=== PATIENT | female | born 2000 | race Hispanic/Latino ===

== ENCOUNTER 2022-08-20 00:24 | Observation (INO) | payer OTHER ==
[2022-08-20 01:02] VITALS: BMI 22.3
[2022-08-20] MEDS ORDERED: Ondansetron ODT 4 MG TAB PO PRN (01:18)
[2022-08-20] MEDS ORDERED: hydrALAZINE 20 MG/ML VIAL SLOW IVP PRN (01:18)
[2022-08-20] MEDS ORDERED: Calcium Carbonate 500 MG ChewTAB PO PRN (01:18)
[2022-08-20] MEDS ORDERED: HYDROcodone/Acetaminophen 5/325 mg Tablet PO PRN ×2 (01:18)
[2022-08-20] MEDS ORDERED: Morphine 4 MG/ML VIAL SLOW IVP PRN (01:21)
[2022-08-20] MEDS ORDERED: Lactated Ringer's 1,000 ML IV SCH (01:30)
[2022-08-20 05:45] LABS: #Monocytes 0.5 10x3/uL (0.0-1.1); %Basophils 0.3 % (0.0-2.0); %Eosinophils 0.3 % (0.0-6.0); %Lymphocytes 15.5 % (18.0-47.0); %Monocytes 7.4 % (0.0-10.0); %Neutrophils 76.3 % (40.0-75.0); Hemoglobin 8.5 g/dL (12.0-15.5); Mean Corpuscular HGB CONC 32.4 g/dL (32.0-36.0); Mean Corpuscular Hemoglobin 30.6 pg (27.0-33.0); Mean Corpuscular Volume 94.2 fl (81.6-98.3); Mean Platelet Volume 10.2 fl (7.4-10.4); Platelet Count 145 10x3/uL (150-450); RBC Distribution Width 12.5 % (11.5-14.5); Red Blood Cell (RBC) Count 2.78 10x6/uL (3.90-5.03); White Blood Cell (WBC) Count 6.6 10x3/uL (3.5-10.5)
[2022-08-20 05:54] LABS: Anion Gap 11 mmol/L (10-20); BUN (Urea Nitrogen) 7 mg/dL (7.0-18.7); Calc. Creatinine Clearance 124 mL/min (70-130); Calcium 7.9 mg/dL (7.8-10.44); Carbon Dioxide 20 mmol/L (22-29); Chloride 109 mmol/L (98-107); Estimated GFR 128; Glucose 100 mg/dL (70-105); Potassium 3.8 mmol/L (3.5-5.1); Sodium 136 mmol/L (136-145)
[2022-08-20 08:19] VITALS: BP 110/65; TEMP 98.6
[2022-08-20] MEDS ORDERED: cefTRIAXone\\ROCEPHIN 2 GM in Sodium Chloride 0.9% 100 ML IVPB SCH (21:00)
== END 2022-08-20 17:57 | disposition home or self-care (01) ==
LOC: INTOOBSV 00:24 → CSHLD 00:24 → CSHPP 02:30
PROVIDERS: ADMIT Obstetrics & Gynecology; ATTEND Obstetrics & Gynecology
DX: O23.42 Unspecified infection of urinary tract in pregnancy, second trimester (principal); N39.0 Urinary tract infection, site not specified; Z3A.26 26 weeks gestation of pregnancy; O26.832 Pregnancy related renal disease, second trimester; N13.2 Hydronephrosis with renal and ureteral calculous obstruction
CPT/HCPCS: 36415; 76775; 76815; 80048; 80053; 81001; 83690; 85025; 87086; 94760; 96360; 96361; 96365; 96375; G0378; J0696; J2272; J2405; J7120; Q0162

== ENCOUNTER 2022-09-06 10:27 | Day surgery (SDC) | payer OTHER ==
[2022-09-06 10:47] VITALS: BMI 22.3
[2022-09-06] MEDS ORDERED: hydrALAZINE 20 MG/ML VIAL SLOW IVP PRN (11:29)
[2022-09-06] MEDS ORDERED: Acetaminophen 325 MG TAB PO SCH (11:30)
[2022-09-06] MEDS ORDERED: Ondansetron PF 4 MG/2 ML Vial IVP SCH (11:30)
[2022-09-06] MEDS ORDERED: Lactated Ringer's 1,000 ML IV SCH (11:30)
[2022-09-06 12:05] LABS: #Monocytes 0.4 10x3/uL (0.0-1.1); #Neutrophils 6.1 10x3/uL (1.5-8.4); %Basophils 0.5 % (0.0-2.0); %Eosinophils 0.5 % (0.0-6.0); %Lymphocytes 18.1 % (18.0-47.0); %Monocytes 5.2 % (0.0-10.0); Hemoglobin 10.4 g/dL (12.0-15.5); Mean Corpuscular HGB CONC 32.9 g/dL (32.0-36.0); Mean Corpuscular Hemoglobin 30.8 pg (27.0-33.0); Mean Corpuscular Volume 93.5 fl (81.6-98.3); Mean Platelet Volume 9.9 fl (7.4-10.4); Platelet Count 174 10x3/uL (150-450); RBC Distribution Width 12.6 % (11.5-14.5); Red Blood Cell (RBC) Count 3.38 10x6/uL (3.90-5.03); White Blood Cell (WBC) Count 8.1 10x3/uL (3.5-10.5)
[2022-09-06 12:07] LABS: Bilirubin Neg (Negative); Blood, Urine 150 (Negative); Clarity Cloudy (Clear); Glucose, Urine (Dipstick) Normal (Negative); Ketone, Urine Negative (Negative); Leukocyte 500 (Negative); Nitrite Negative (Negative); Protein, Urine (Dipstick) 30 mg/dl (Neg-Trace); Urobilinogen Normal mg/dL (Less than 2)
[2022-09-06 12:16] LABS: CAUTI Indications for Culture Pregnancy; WBC/HPF 21-50 HPF (0-3)
[2022-09-06 12:17] LABS: Bacteria/HPF 3+ HPF (None Seen)
[2022-09-06 12:18] LABS: Urine Culture Reflex Yes Yes
[2022-09-06] MEDS ORDERED: cefTRIAXone\\ROCEPHIN 1 GM in Sodium Chloride 0.9% 100 ML IVPB SCH (12:30)
[2022-09-06 12:34] LABS: ALT (SGPT) 14 U/L (8-55); AST (SGOT) 16 U/L (5-34); Albumin 3.7 g/dL (3.5-5.0); Alkaline Phosphatase 72 U/L (40-110); Anion Gap 12 mmol/L (10-20); BUN (Urea Nitrogen) 9 mg/dL (7.0-18.7); Bilirubin, Total 0.5 mg/dL (0.2-1.2); Calc. Creatinine Clearance 118 mL/min (70-130); Calcium 9.1 mg/dL (7.8-10.44); Carbon Dioxide 24 mmol/L (22-29); Chloride 106 mmol/L (98-107); Estimated GFR 127; Globulin 3.1 g/dL (2.4-3.5); Glucose 82 mg/dL (70-105); Potassium 4.4 mmol/L (3.5-5.1); Protein, Total 6.8 g/dL (6.0-8.3); Sodium 138 mmol/L (136-145)
== END 2022-09-06 13:58 | disposition home or self-care (01) ==
LOC: CSHLD/OP 10:27
PROVIDERS: ATTEND Obstetrics & Gynecology
DX: O99.891 Other specified diseases and conditions complicating pregnancy (principal); M54.50 Low back pain, unspecified; O47.03 False labor before 37 completed weeks of gestation, third trimester; O36.8130 Decreased fetal movements, third trimester, not applicable or unspecified; O23.43 Unspecified infection of urinary tract in pregnancy, third trimester; N39.0 Urinary tract infection, site not specified; Z87.442 Personal history of urinary calculi; Z3A.28 28 weeks gestation of pregnancy; Z79.899 Other long term (current) drug therapy
CPT/HCPCS: 36415; 80053; 81001; 85025; 87077; 87086; 87186; 96360; 96375; 99283; J0696; J2405; J3490

== ENCOUNTER 2022-10-17 10:38 | Day surgery (SDC) | payer OTHER ==
[2022-10-17 11:02] VITALS: BMI 23.9
[2022-10-17] MEDS ORDERED: hydrALAZINE 20 MG/ML VIAL SLOW IVP PRN (11:28)
[2022-10-17 13:36] LABS: Bilirubin Neg (Negative); Blood, Urine Negative (Negative); Clarity Slightly Cloudy (Clear); Glucose, Urine (Dipstick) Normal (Negative); Ketone, Urine Negative (Negative); Leukocyte 100 (Negative); Nitrite Negative (Negative); Protein, Urine (Dipstick) Negative (Neg-Trace); Urobilinogen Normal mg/dL (Less than 2)
[2022-10-17 14:33] LABS: RBC/HPF 0-3 HPF (0-3)
[2022-10-17 14:34] LABS: Bacteria/HPF 2+ HPF (None Seen); CAUTI Indications for Culture Pregnancy
[2022-10-17 14:36] LABS: Urine Culture Reflex Yes Yes
== END 2022-10-17 15:10 | disposition home or self-care (01) ==
LOC: CSHLD/OP 10:38
PROVIDERS: ATTEND Family Medicine
DX: O36.8130 Decreased fetal movements, third trimester, not applicable or unspecified (principal); O23.43 Unspecified infection of urinary tract in pregnancy, third trimester; N39.0 Urinary tract infection, site not specified; Z3A.34 34 weeks gestation of pregnancy
CPT/HCPCS: 76819; 81001; 87086; 99283

== ENCOUNTER 2022-11-06 20:29 | Day surgery (SDC) | payer OTHER ==
[2022-11-06] MEDS ORDERED: hydrALAZINE 20 MG/ML VIAL SLOW IVP PRN (22:13)
== END 2022-11-06 22:26 | disposition home or self-care (01) ==
LOC: CSHLD/OP 20:29
PROVIDERS: ATTEND Obstetrics & Gynecology
DX: O47.1 False labor at or after 37 completed weeks of gestation (principal); O99.353 Diseases of the nervous system complicating pregnancy, third trimester; G43.909 Migraine, unspecified, not intractable, without status migrainosus; O34.43 Maternal care for other abnormalities of cervix, third trimester; N87.9 Dysplasia of cervix uteri, unspecified; Z79.899 Other long term (current) drug therapy; Z3A.37 37 weeks gestation of pregnancy
CPT/HCPCS: 99282

== ENCOUNTER 2024-10-28 10:30 | Inpatient (IN) | payer OTHER ==
[2024-10-28 23:02] VITALS: BMI 26.9
[2024-10-29 01:26] LABS: Fetal Membranes Rupture No Membranes Rupture (No Rupture)
[2024-10-29] MEDS ORDERED: Diphenoxylate HCl/Atropine Tablet PO PRN ×2 (02:58)
[2024-10-29] MEDS ORDERED: hydrALAZINE 20 MG/ML VIAL SLOW IVP PRN ×2 (02:58→09:38)
[2024-10-29] MEDS ORDERED: Methylergonovine 0.2 MG/ML VIAL IM PRN ×2 (02:58→09:38)
[2024-10-29] MEDS ORDERED: Ondansetron PF 4 MG/2 ML Vial IVP PRN ×4 (02:58→09:38)
[2024-10-29] MEDS ORDERED: Famotidine/PF 20 mg/2ml Vial SLOW IVP PRN (02:58)
[2024-10-29] MEDS ORDERED: Bicitra 30 ML UDCUP PO PRN (02:58)
[2024-10-29] MEDS ORDERED: Tranexamic Acid 1,000 MG/10 ML VIAL IVP PRN (02:58)
[2024-10-29] MEDS ORDERED: Oxytocin 30 units/NS 500 ML 500 ML IV SCH ×2 (03:00→09:38)
[2024-10-29 03:50] LABS: Hematocrit 30.7 % (34.9-44.5); Hemoglobin 9.8 g/dL (12.0-15.5); Mean Corpuscular Hemoglobin 26.4 pg (27.0-33.0); Mean Corpuscular Volume 82.7 fL (81.6-98.3); Platelet Count 190 10x3/uL (150-450); Red Blood Cell (RBC) Count 3.71 10x6/uL (3.90-5.03); White Blood Cell (WBC) Count 6.34 10x3/uL (3.5-10.5)
[2024-10-29 04:07] LABS: ALT (SGPT) 12 U/L (Less than 34); AST (SGOT) 22 U/L (11-34); Albumin 3.1 g/dL (3.1-4.5); Alkaline Phosphatase 103 U/L (40-110); Anion Gap 15 mmol/L (10-20); BUN (Urea Nitrogen) 15 mg/dL (7.0-18.7); Bilirubin, Total 0.4 mg/dL (0.3-1.2); Calc. Creatinine Clearance 144 mL/min (70-130); Calcium 8.7 mg/dL (7.8-10.44); Carbon Dioxide 20 mmol/L (22-29); Chloride 105 mmol/L (98-107); Globulin 3.2 g/dL (2.4-3.5); Glucose 76 mg/dL (70-105); Potassium 4.3 mmol/L (3.5-5.1); Sodium 136 mmol/L (136-145)
[2024-10-29 04:26] LABS: Syphilis Antibody Index 0.02 S/CO (<1.00 Non-Reactive)
[2024-10-29 04:28] LABS: Hep B Surf Ag - L&D Non-Reactive S/CO (NonReactive)
[2024-10-29] MEDS ORDERED: diphenhydrAMINE 50 MG/ML VIAL IVP PRN (06:43)
[2024-10-29] MEDS ORDERED: Meperidine HCl/PF 25 MG (1 mL) VIAL SLOW IVP PRN (06:43)
[2024-10-29] MEDS ORDERED: HYDROmorphone 0.5 MG/0.5 ML SYRINGE SLOW IVP PRN (06:43)
[2024-10-29] MEDS ORDERED: Communication Order-Pharmacy FS SCH (06:45)
[2024-10-29] MEDS ORDERED: Ketorolac Tromethamine 30 MG (1 mL) VIAL IVP SCH (06:45)
[2024-10-29] MEDS ORDERED: Boostrix 0.5 ML (Tdap) VIAL (>/=7 yrs of age) IM ONE (10:00)
[2024-10-29] MEDS: Ketorolac Tromethamine 30 MG (1 mL) VIAL IVP PRN (11:12)
[2024-10-29] MEDS: Azithromycin 500 MG in Sodium Chloride 0.9% 250 ML 250 ML IVPB SCH (19:54)
[2024-10-29] MEDS: diphenhydrAMINE 50 MG/ML VIAL ONE (19:55)
[2024-10-29] MEDS: Dexamethasone 10 MG/ML VIAL ONE (19:55)
[2024-10-29] MEDS: Ondansetron PF 4 MG/2 ML Vial ONE (19:58)
[2024-10-29] MEDS: Oxytocin 10 UNITS/ML VIAL ONE (19:58)
[2024-10-29] MEDS: PHENYLEPHRINE-NS 100 MCG/ML 10 ML SYRINGE ONE (19:58)
[2024-10-29] MEDS: Simethicone Chewable 80 MG TAB PO PRN (20:24)
[2024-10-29] MEDS: Acetaminophen/Codeine 30-300mg Tablet PO PRN (22:55)
[2024-10-30 05:25] LABS: #Basophils 0.03 10x3/uL (0.0-0.2); #Eosinophils 0.03 10x3/uL (0.0-0.5); #Monocytes 0.49 10x3/uL (0.0-1.1); #Neutrophils 7.54 10x3/uL (1.5-8.4); %Basophils 0.3 % (0.0-2.0); %Eosinophils 0.3 % (0.0-6.0); %Lymphocytes 21.4 % (18.0-47.0); %Monocytes 4.7 % (0.0-10.0); %Neutrophils 73.0 % (40.0-75.0); Hematocrit 25.5 % (34.9-44.5); Hemoglobin 8.2 g/dL (12.0-15.5); Mean Corpuscular Hemoglobin 26.6 pg (27.0-33.0); Mean Corpuscular Volume 82.8 fL (81.6-98.3); Platelet Count 181 10x3/uL (150-450); Red Blood Cell (RBC) Count 3.08 10x6/uL (3.90-5.03); White Blood Cell (WBC) Count 10.33 10x3/uL (3.5-10.5)
[2024-10-30] MEDS: HYDROcodone/Acetaminophen 5/325 mg Tablet PO PRN (11:35)
[2024-10-30] MEDS: Ibuprofen 800 MG TAB PO SCH (14:40)
[2024-10-31 08:36] VITALS: BP 128/72; TEMP 98.2
[2024-10-31] MEDS: Sodium Ferric Gluconate 250 MG in Sodium Chloride 0.9% 250 ML 250 ML IVPB SCH (12:41)
[2024-10-31] MEDS: Ferrous Sulfate 325 MG TAB PO SCH (12:45)
[2024-10-31] MEDS ORDERED: Ferrous Sulfate 325 MG TAB PO SCH (17:00)
== END 2024-10-31 14:00 | disposition home or self-care (01) | DRG 787 ==
LOC: CSHLD/OP 10:30 → CSHERS 22:30 → CSHLD 10-29 03:41 → CSHPP 10-29 09:00
PROVIDERS: ADMIT Family Medicine; ATTEND Family Medicine
PROC: 10D00Z1 Extraction of Products of Conception, Low, Open Approach (ICD-10-PCS; principal; 2024-10-29)
PROC: 4A1HXCZ Monitoring of Products of Conception, Cardiac Rate, External Approach (ICD-10-PCS; 2024-10-29)
DX: O42.92 Full-term premature rupture of membranes, unspecified as to length of time between rupture and onset of labor (principal); D62 Acute posthemorrhagic anemia; O76 Abnormality in fetal heart rate and rhythm complicating labor and delivery; O99.03 Anemia complicating the puerperium; J45.909 Unspecified asthma, uncomplicated; O34.211 Maternal care for low transverse scar from previous cesarean delivery; O99.52 Diseases of the respiratory system complicating childbirth; Z3A.39 39 weeks gestation of pregnancy; Z37.0 Single live birth
CPT/HCPCS: 51702; 76819; 80053; 84112; 85025; 85027; 86780; 86850; 86900; 86901; 87340; 87480; 87510; 87660; 99285; J1100; J1200; J1885; J2274; J2310; J2405; J2590; J3010